=== PATIENT | female | born 2005 | race Caucasian/White ===

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

== ENCOUNTER 2025-04-16 17:36 | Emergency (ER) | payer OTHER, SELFPAY ==
--- OUTSIDE RECORDS SUMMARY | 2025-04-16 18:12 | XMS_ITS | Referral Summary ---
Author Organization [facility] Address [address] [place] [id number] Care Team Providers Care Applications Consultant Name Role Phone Unavailable Primary Care Provider Unavailabl e Allergies No known active allergies Medications No known medications Social History Tobacco Use Types Packs/Day Years Used Date Smoking Tobacco: Never Smokeless Tobacco: Never Tobacco Cessation:Counseling Given: Not Answered Alcohol Use Standard Drinks/Week Comments Never 0 (1 standard drink = 0.6 oz pur e alcohol) Interpersonal Safety Answer Date Record ed Family or friends hurt you Not on file 11/29 Family or friends insult you Not on file Family or friends threaten you Not on file 0 11/29/2023 Family or friends scream or curse at you Not on file 11/29/2023 Housing Stability Answer Date Recorded Living situation today Not on file Living situation problems Not on file 2023 Food Insecurity Answer Date Recorded Food run out past 12 months Not on file 11/11 Food did not last past 12 months Not on file 11/29/2023 Employment Answer Date Recorded Help finding and keeping a job Not on file 0 11/29/2023 Family and Community Support Answer Nitin e Recorded Help with Day to Day Activities Not on file 11/29/2023 Feeling Lonely or Isolated Not on file 11/29 Educational Attainment Answer Date Dominic rded Speak language other than Romanian at home Not on file 11/29/2023 Want help with school or training Not on file 11/29/2023 Depression Answer Date Recorded PHQ-2 Risk Not on file 11/29/2023 Disabilities Answer Date Recorded Difficulty concentrating Not on file 024 Difficulty doing errands alone Not on file 0 11/29/2023 Substance Use Answer Date Recorded Used prescription meds for non-medical reasons N ot on file 11/29/2023 Used illegal drugs past 12 months Not on file 11/29/2023 Comments Unknown Sex and Gender Information Value Date Recorded Sex Assigned at Not on file Legal Sex Female 6:28 PM CDT Gender Identity Not on file Sexual Orientation Not on file Last Filed Vital Signs Vital Sign Reading Time Taken Comments Blood Pressure 113/65 08/24/2023 10:12 PM EDT Pulse 89 08/24/2023 10:12 PM EDT Temperature 36.3 C (97.4 F) 08/25/2023 1:22 AM EDT Respiratory Rate 18 08/24/2023 10:12 PM EDT Oxygen Saturation 99% 08/24/2023 10:12 PM EDT Inhaled Oxygen Concentration - - Weight 66.7 kg (147 lb) 08/24/2023 10:12 PM EDT Height 157.5 cm (5' 2 ) 08/24/2023 10:12 PM EDT Body Mass Index 26.89 08/24/2023 10:12 PM EDT Plan of Treatment Not on [place] [address] [place] [address] [facility]
--- OUTSIDE RECORDS SUMMARY | 2025-04-16 18:12 | XMS_ITS | Data Portability ---
Author Organization Jimmy MAJANO[facility] Address [address], [address] [place] [address] Care Team Providers Care Distillery Worker General Name Role Phone NELIAALISA Primary Care Provider CHAITANYA RONDON Waste Machine Tender Assessment No assessment recorded. Plan of Treatment Reminders Order Date Submit Date Provider Last Modified By Organization Details Last Modified Time Details Appointments None record ed. Lab None record ed. Referral None record ed. Procedures None record ed. Surgeries None record ed. Imaging None record ed. Medication Orders None record ed. Patient TargetsNo targets recorded. Patient InstructionsNo instructions recorded. Reason for Referral None Reported. Problems Name Problem SNOMED Code Status Onset Date Resolution Date Notes Provider Name and Address Organization Details Recorded Time Anemia 334261121 Active 2023 1/6/24 H/H 27.0/8.6 Saw Hematology , getting IV iron LIU BURNS NP [address], [address], [place], [address] , [place] [facility] 10:45:22 Anemia 730328697 Active 2023 1/6/24 H/H 27.0/8.6 Saw Hematology , getting IV iron LIU BURNS NP [address], [address], [place], [address] , [place] [facility] 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 4 10:50:08 Depressiv e disorder 91164748 Active 2023 On medication LIU BURNS NP [address], [address], [place], , [place] MD [facility] 4 10:47:27 Depressiv e disorder 56201738 Active 2023 On medication JESSICA [address], [address], [place], , [place] MD [facility] 4 10:47:27 Generaliz ed anxiety disorder 94365647 Active 2023 LIU BURNS NP [address], [address], [place], , [place] MD [facility] 4 10:47:55 Generaliz ed anxiety disorder 81683296 Active 2023 LIU BURNS NP [address], [address], [place], , [place] MD [facility] 4 10:47:55 Polycysti c ovary syndrome 402950130 Active 2023 LIU BURNS NP [address], [address], [place], , [place] MD [facility] 4 10:48:12 Polycysti c ovary syndrome 868457735 Active 2023 LIU BURNS NP [address], [address], [place], , [place] MD [facility] 4 10:48:13 Bipolar disorder 14259168 Active 2023 LIU BURNS NP [address], [address], [place], [address] , [place] Ankur MAJANO.[facility] 4 10:51:22 Bipolar disorder 90106918 Active 2023 LIU BURNS NP [address], [address], [place], [address] , [place] MD [facility]iana [facility] 4 10:51:23 Problem Notes None recorded. Procedures Surgical History Date Name Laterality Status Provider Name and Address Organization Details Recorded Time extraction of wisdom tooth completed [address], [address], [place], [address], MD [facility] 12/12/2023 10:47:10 Imaging Results None recorded. Procedure Notes None recorded. Medical Equipment None Reported. Allergies Allergen ID Allergen Name Allergen Category Reaction Reaction Severity Criticality Documentation Date Start Date Code Code System Note Provider Name and Address Organization Details Recorded Time 2211 lactose food,medi cation Not available Not available Not available 12/12/2023 6211 RxNorm Lacto se intol eranc e LIU BURNS NP [address], [address], [place], [address], MD [facility] 4 10:38:48 2212 grass pollen environme nt,medica tion rash Not available Not available 12/12/2023 81956 UNK LIU BURNS NP [address], [address], [place], [address], MD [facility] 4 10:38:56 Medications Name Sig Start Date Stop Date Status Note LastModified by Organization Details LastModified Time terconazole 0.4 % vaginal cream INSERT 1 APPLICATO R INTO THE VAGINA EVERY NIGHT FOR 7 DAYS. 12/12 completed Not Available Not Available Not Available levothyroxi ne 175 mcg tablet TAKE 1 TABLET BY MOUTH EVERY DAY 12/12 completed Not Available Not Available Not Available levothyroxi ne 137 mcg tablet TAKE 1 TABLET BY MOUTH EVERY DAY 12/12 completed Not Available Not Available Not Available doxycycline hyclate 100 mg capsule TAKE 1 CAPSULE TWICE DAILY WITH AT LEAST 8OZ OF WATER. DO NOT LIE DOWN FOR 30 MIN AFTER 12/12 completed Not Available Not Available Not Available Vitamin B-6 25 mg tablet TAKE 1 TABLET BY MOUTH EVERY DAY AT NIGHT 12/12 completed Not Available Not Available Not Available Synthroid 200 mcg tablet TAKE 1 TABLET BY MOUTH EVERY DAY active Not Available Not Available No t Available promethazin e 25 mg rectal suppository INSERT 1 SUPPOSITO RY INTO THE RECTUM EVERY 4 (FOUR) HOURS NEEDED FOR NAUSEA OR VOMITING. 12/12 completed Not Available Not Available Not Available ondansetron HCl 4 mg tablet TAKE 1 TABLET BY MOUTH EVERY 6 HOURS NEEDED FOR NAUSEA AND VOMITING. 12/12 completed Not Available Not Available Not Available topiramate 25 mg tablet TAKE 1 TABLET BY MOUTH TWICE A DAY 12/12 completed Not Available Not Available Not Available metronidazo le 500 mg tablet TAKE 1 TABLET BY MOUTH TWICE A DAY FOR 2 WEEKS 12/12 completed Not Available Not Available Not Available levothyroxi ne 100 mcg tablet TAKE 1 TABLET BY MOUTH EVERY DAY 12/12 completed Not Available Not Available Not Available cephalexin 500 mg capsule TAKE 1 CAPSULE BY MOUTH 2 TIMES A DAY FOR 5 DAYS. 12/12 completed Not Available Not Available Not Available ferrous sulfate 325 mg (65 mg iron) tablet TAKE 1 TABLET BY MOUTH 2 TIMES A DAY BEFORE MEALS. active Not Available Not Available No t Available levothyroxi ne 125 mcg tablet TAKE 1 TABLET BY MOUTH EVERY DAY 12/12 completed Not Available Not Available Not Available docusate sodium 100 mg capsule TAKE 1 CAPSULE BY MOUTH TWICE A DAY NEEDED FOR CONSTIPAT ION 12/12 completed Not Available Not Available Not Available omeprazole 20 mg capsule,del ayed release Take 1 capsule every day by oral route. active Not Available Not Available No t Available montelukast 10 mg tablet TAKE 1 TABLET BY MOUTH EVERYDAY AT BEDTIME 12/12 completed Not Available Not Available Not Available ferrous sulfate 325 mg (65 mg iron) tablet,minnie yed release TAKE 1 TABLET BY MOUTH EVERY DAY WITH BREAKFAST 12/12 completed Not Available Not Available Not Available ondansetron 4 mg disintegrat ing tablet PLACE 1 TABLET ON THE TONGUE EVERY 8 HOURS NEEDED FOR NAUSEA AND VOMITING active Not Available Not Available No t Available metoclopram fernando 10 mg tablet TAKE 1 TABLET BY MOUTH 3 (THREE) TIMES A DAY NEEDED (NAUSEA AND VOMITING) . active Not Available Not Available No t Available levothyroxi ne 112 mcg tablet TAKE 2 TABLETS BY MOUTH EVERY DAY 12/12 completed Not Available Not Available Not Available bupropion HCl XL 150 mg 24 hr tablet, extended release TAKE 1 TABLET BY MOUTH EVERY DAY IN THE MORNING 12/12 completed Not Available Not Available Not Available nitrofurant oin monohydrate /macrocryst als 100 mg capsule TAKE ONE TABLET BY MOUTH TWICE A DAY FOR 7 DAYS MUST ADMINISTE R WITH A MEAL/FOOD 12/12 completed Not Available Not Available Not Available duloxetine 30 mg capsule,del ayed release TAKE 1 CAPSULE BY MOUTH EVERY DAY 12/12 completed Not Available Not Available Not Available Synthroid Takes 224mcg daily active Not Available Not Available No t Available June (28) 3 mg-0.02 mg tablet TAKE 1 TABLET BY MOUTH EVERY DAY 12/12 completed Not Available Not Available Not Available Nighttime Sleep-Aid (doxylamine ) 25 mg tablet TAKE 1 TABLET BY MOUTH EVERY DAY AT NIGHT 12/12 completed Not Available Not Available Not Available Vitals Date Recorded Body height Body mass index (BMI) Body mass index (BMI) Percentile per age and sex Body weight Provider Name and Address Organization Details Last Updated DateTime 12/11/2023 157.48 cm 33.1 kg/m2 96.16 % 72144.22 g Ginger Tobar MD [facility] 12/18/2023 13:27:29 Social History None recorded. Functional Status Question Answer Note LastModified by Organizat ion Details LastModified Time Do you use any illicit or recreational drugs? No Information not available 12/12/2023 Do you or have you ever used any other forms of tobacco or nicotine? No Information not available 12/12/2023 What is your level of alcohol consumption? None Information not available 12/12/2023 Mental Status None recorded. Family History Relationship Description Onset Age of this Age Resolved Age Notes LastModified by Organization Details LastModified Time Mother Diabetes mellitus Not available 2023 10:51:48 Unspecified Relation Depressive disorder [email or web address] Not available 2023 13:36:42 Medical History Condition Response Thyroid Disorder (hypo/hyper throidism) Y Anemia / Blood Disorder Y Mental Disorder (Anxiety, depression, Ea ting Disorder, ADD/ADHD) Y Uterine / Ovarian Disorders (PCOS, Endom etriosis/Fibroids) Y Lung Disease/Disorders (Asthma, COPD) Y Neurologic Disorder (stroke, headache, s eizures) Gynecological HistoryNo gynecological history recorded. Obstetrics History GPAL:G 1 P 0 0 0 0 Past Encounters Encounter ID Performer Location Encounter Start Date Encounter Closed Date Diagnosis/Indication Diagnosis SNOMED-CT Code Diagnosis ICD10 Code Diagnosis Note [id number] [facility] [address], [address] [place] [address] 12/13/2023 15:24:44 12/13/2023 15:26:47 [id number] [facility] [address], [address] [place] [address] 12/18/2023 13:30:22 12/18/2023 13:37:02 Screening - NAD 232431803 Z13.9 Z13.30 Z13.32 Health Concerns Section Related Observation LastModified by Organization Detai ls LastModified Time None Recorded Concern Status LastModified by Organization Details LastModified Time None Recorded Advance Directives Directive None Recorded Payers Insurance Date Sequence Insurance Name Policy Number Policy Mahoney Covered Member ID Mahoney Member ID Guarantor Name 12/11/2023 *SELF PAY* Kannan Beltre 03/25/2024 1 [place] [id number] Macey Holoch [id number] Macey Holoch OBGyn Episode Ob Episode Information Episode Created Date Number of Fetuses Patient Bloodtype Patient rh Status Prepregnancy Weight lbs Domestic Partner Domestic Partner Phone Father Name Camera Engineer Status 12/11/19 24 1 OPEN Fetus Data First Name Last Name Admitted to NICU Weight (g) Sex Living Outcome Pediatric Complications Fetus ID Race Codes Race Delivery Type [id number] Problems Problem Notes Problem Name Start Date End Date Resolution Snomed Code Not e Generalized anxiety disorder 12/12/2023 35662925 Hypothyroidism 12/12/2023 95147322 Ryder enital - born without a thyroid, followed by [facility] endocrine, On synthroid Depressive disorder 12/12/2023 83968040 On medication Polycystic ovary syndrome 12/12/2023 388424597 Anemia 12/12/2023 683121912 //24 H/ H 27.0/8.6Saw Hematology, getting IV iron Bipolar disorder 12/12/2023 [id number] Aleksandr Calculation Initial Aleksandr Date Initial Exam Date Initial Exam Provider Initial Ultrasound Date Last Menstrual Period Date Ultra Sound Weeks Gestation 02/29/2024 0 Eighteen To Twenty Week Aleksandr Update Ultra Sound Date Fundal Height At Umbil Quickening Date Ultra Sound Latest Weeks Gestation Final Aleksandr Confirmed By Final Aleksandr Confirmed Date Final Aleksandr Date Ultra Sound Latest Days Gestation 0 0 Pre-sandro Flowsheet Flowsheet Date 12/11/2023 Kearns Score Blood Edema Fundus Height Fundus Units Glucose Ketones Leukocytes Nitrite Labor Signs Protein Cervic Dilation Cervic Effacement Cervic Station Type Weight in lbs Pre/Post Dialysis Refused BP Diastolic BP Location Tested BP Systolic BP Type Fetus Heart Rate Present Fetus Movement Comments Flowsheet Date 12/12/2023 Kearns Score Blood Edema Fundus Height Fundus Units Glucose Ketones Leukocytes Nitrite Labor Signs Protein Cervic Dilation Cervic Effacement Cervic Station Type Weight in lbs Pre/Post Dialysis Refused BP Diastolic BP Location Tested BP Systolic BP Type Fetus Heart Rate Present Fetus Movement Comments Menstrual History Last Menstrual Date Menses Monthly On Bcp Conception Prior Menses Frequency Hcg Plus Date Menarche Onset Age Delivery Information Delivery Date Delivery Type Labor Anesthesia Weeks Gestation Incision Type Labor Labor Length Hrs Delivered By Post Complications Tubal Sterilization Discharge Date Comments Discharge Information Feeding Method Contraceptive Method Maternal HG B and HCT Levels
--- OUTSIDE RECORDS SUMMARY | 2025-04-16 18:12 | XMS_ITS ---
Author Organization Unknown Patient Care team information Name Category Status Period Participants - - Proposed period not known - - - Proposed period not known -
--- OUTSIDE RECORDS SUMMARY | 2025-04-16 18:12 | XMS_ITS | Encounter Summary ---
Author Organization Healthcare Address [address] [place] [address] Care Team Providers Care Spa Coordinator Name Role Phone Oral Carreon MD Primary Care Provider Reason for Visit * Reason Comments Med Refill Encounter Details Date Type Department Care Team ([facility] Contact Info) Description 04/19/2023 Refill Medical Office Building Obstetrics and Gynecology [address], [address] [place] [address] Melanie Ryan, PAINTLESS DENT REPAIR TECHNICIAN [address] [place] [address] PCOS (polycystic ovarian syndrome); Surveillance of contraceptive pill Social History Tobacco Use Types Packs/Day Years Used Date Smoking Tobacco: Never Smokeless Tobacco: Never Alcohol Use Standard Drinks/Week Comments Never 0 (1 standard drink = 0.6 oz pur e alcohol) PHQ-2 Answer Date Recorded PHQ-2 Score 0 04/15/2023 Comments No Sex and Gender Information Value Date Recorded Sex Assigned at Female 01/25/2022 3:57 PM EDT Legal Sex Female 8:42 PM EDT Gender Identity Non-Binary 01/25/2022 3:57 PM EDT Sexual Orientation Straight 10/20/2023 7: 32 PM EST documented as of this encounter Plan of Treatment Not on file documented as of this encounter Visit Diagnoses Diagnosis PCOS (polycystic ovarian syndrome) Polycystic ovaries Surveillance of contraceptive pill Surveillance of previously prescribed contraceptive pill documented in this encounter Additional Health Concerns Assessment Noted Time A fall risk assessment has been complete d for the patient 11/30/2021 2:52 PM EST documented as of this encounter Care Teams Spa Coordinator Relationship Specialty Start Date End Date Oral Carreon MD [address] [place], [place] [id number] PCP - General 03/24/21 documented as of this encounter
--- OUTSIDE RECORDS SUMMARY | 2025-04-16 18:13 | XMS_ITS | Clinical Summary ---
Author Organization Healthcare Address [address] [place] [address] Care Team Providers Care Control Clerk Name Role Phone Oral Carreon MD Primary Care Provider [phone] Allergies No known active allergies Medications SUMAtriptan (Imitrex) 100 MG tablet Take 100 mg by mouth 1 (one) time each day if needed. Usually takes once every two weeks 11/06/20 21 Active montelukast (Singulair) 10 MG tablet Take 10 mg by mouth 1 (one) time each day. 11/05/20 21 Active magnesium oxide (Mag-Ox) 250 MG tablet Take 250 mg by mouth 1 (one) time each day. 04/15/20 20 Active albuterol 108 (90 Base) MCG/ACT inhaler Inhale 2 puffs every 2 (two) hours if needed. 11/06/20 21 Active coenzyme Q-10 200 MG capsule Take 200 mg by mouth 1 (one) time each day. 04/15/20 20 Active Riboflavin (Vitamin B-2) 100 MG tablet Take 200 mg by mouth 1 (one) time each day. Active ondansetron ODT (Zofran-ODT) 4 MG disintegrating tablet 03/27/20 22 Active omeprazole (PriLOSEC) [address] capsule TAKE 1 ORAL CAPSULE ONCE A DAY FOR GASTRIC PAIN 03/27/20 22 Active Multiple Vitamin (Multi-Vitamin Daily) tablet 08/15/20 15 Active ibuprofen 800 MG tablet Take 800 mg by mouth every 6 (six) hours if needed. 12/29/19 22 Active buPROPion XL (Wellbutrin XL) 150 MG 24 hr tablet 10/15/20 22 Active FLUoxetine (PROzac) 20 MG capsule Take by mouth 1 (one) time each day. 09/24/20 22 Active levothyroxine (Synthroid, Levoxyl) 137 MCG tablet Take 137 mcg by mouth 1 (one) time each day. 04/12/20 Active DULoxetine (Cymbalta) [address] capsule 04/18/20 Active drospirenone-ethin yl estradiol (Arminda, Gianvi) 3-0.02 MG tabletIndications: PCOS (polycystic ovarian syndrome),Surveill ance of contraceptive pill Take 1 tablet by mouth 1 (one) time each day. 84 tablet 3 04/19/20 Active Additional Information Patient not taking.Reported on 10/23/2023 ferrous sulfate 325 (65 Fe) MG EC tablet Take 1 tablet (325 mg) by mouth 1 (one) time each day with breakfast. 04/19/20 Active levothyroxine (Synthroid, Levoxyl) 125 MCG tablet Take 1 tablet (125 mcg) by mouth 1 (one) time each day. 04/19/20 Active topiramate (Topamax) 25 MG tablet Take 1 tablet (25 mg) by mouth 2 (two) times a day. 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 Immunizations Immunization Administration Dates Next Due Influenza, injectable, quadrivalent, preservativ e free 09/17/2016,09/06/2015 Family History Medical History Relation Name Comments abscess Brother No Known Problems Father Bipolar disorder Mother Diabetes Mother type 2 Migraines Mother abscess Mother Diabetes Other Relation Name Status Comments Brother Father Mother Other Social History Tobacco Use Types Packs/Day Years Used Date Smoking Tobacco: Never Smokeless Tobacco: Never Tobacco Cessation:Counseling Given: Not Answered Alcohol Use Standard Drinks/Week Comments Never 0 (1 standard drink = 0.6 oz pur e alcohol) PHQ-2 Answer Date Recorded PHQ-2 Score 2 05/22/2023 PHQ-2A Answer Date Recorded PHQ-2 Score 2 05/22/2023 Comments Unknown Sex and Gender Information Value Date Recorded Sex Assigned at Female 01/25/2022 3:57 PM EDT Legal Sex Female 8:42 PM EDT Gender Identity Non-Binary 01/25/2022 3:57 PM EDT Sexual Orientation Straight 10/20/2023 7: 32 PM EST Last Filed Vital Signs Vital Sign Reading Time Taken Comments Blood Pressure 110/60 04/19/2023 10:19 AM EDT Pulse 105 04/19/2023 10:19 AM EDT Temperature 36.9 C (98.4 F) 01/25/2023 12:01 PM EDT Respiratory Rate 18 04/19/2023 10:19 AM EDT Oxygen Saturation 96% 04/19/2023 10:19 AM EDT Inhaled Oxygen Concentration - - Weight 68 kg (150 lb) 10/23/2023 3:06 PM EST Height 157.5 cm (5' 2 ) 04/19/2023 10:19 AM EDT Body Mass Index 27.44 04/19/2023 10:19 AM EDT Plan of Treatment Health Maintenance Due Date Last Done Comments [facility]-Depression Screening 2005 [facility]-HIV Screening 2005 [facility]-/Child/Adol SDOH Screenings 2005 [facility]-Obesity Intervention 2011 [facility]- SDOH Screenings 2023 [facility]-Adult SDOH Screenings 2023 [facility]-Pneumococcal Vaccine: Pediatrics (0 to 5 Years) and At-Risk Patients (6 to 49 Years) (1 of 2 - PCV) 01/30/2024 05/06/2006, 2005, 2005, Additional history exists [facility]-Chlamydia and Gonorrhea Screening 04/19/2024 04/19/2023, 04/19/2023, 01/25/2023, Additional history exists [id number] Vaccine ( season) 2024 10/21/2021, 02/27/2021, 02/06/2021 [facility]-Influenza Vaccine (Season Ended) 2025 09/12/2021, 07/25/2020, 10/30/2019, Additional history exists [facility]-DTaP,Tdap,and Td Vaccines (7 - Td or Tdap) 02/16/2026 02/17/2016, 02/25/2009, 05/06/2006, Additional history exists [facility]-Zoster Vaccines (1 of 2) 2055 02/25/2009, 02/11/2006 [facility]-Hepatitis B Vaccines Completed 005, 2005, 2005, Additional history exists [facility]-HIB Vaccines Completed 02/11/2006, , 2005 [facility]-Hepatitis A Vaccines Completed 12/31/2006, 04/12 [facility]-IPV Vaccines Completed 02/25/2009, , 2005, Additional history exists [facility]-Varicella Vaccines Completed 02/25/2009, 2005 HPV Vaccines Completed 06/25/2017, 12/25/2016 [facility]-Hepatitis C Screening Completed 04/18/2023 [facility]-Rotavirus Vaccines Aged Out No lo nger eligible based on patient's age to complete this topic Procedures Procedure Name Priority Date/Time Associated Diagnosis Comments CHLAMYDIA TRACHOMATIS DNA BY PCR Routine 04/19/2023 11:24 AM EDT Routine screening for STI (sexually transmitted infection) from Last 3 Months or Most Recently Relevant to Health Maintenance Results * Chlamydia trachomatis DNA by PCR (04/19/2023 11:24 AM EDT) Chlamydia trachomatis DNA PCR Result Not Detected Not Detected 04/21/2023 1:53 PM EDT [facility] Urine Urine specimen / Unknown Non-blood Collection / Unknown 04/19/2023 11:24 AM EDT 04/19/2023 1:45 PM EDT Narrative [facility] - 04/21/2023 1:53 PM EDT This test is performed by the PandaDoc instrument for Real Time PCR C. trachomatis and N. gonorrhea. This test is FDA approved for use with endocervical, vaginal, and urine specimens. This test is used for clinical purposes. It should not be regarded as invesigational or for research. The [facility] is certified under the Clinical Laboratory Improvement Amendments of 1988 (CLIA-88) as qualified to perform high complexity clinical laboratory testing. us Melanie Ryan ELEMENTARY EDUCATOR LAB MICROBIOLOGY - GENERAL OR DERABLES Final Result [facility] [address] [place] [address] from Last 3 Months or Most Recently Relevant to Health Maintenance Care Teams Control Clerk Relationship Specialty Start Date End Date Oral Carreon MD [address] [place] [address] PCP - General 03/24/21
--- OUTSIDE RECORDS SUMMARY | 2025-04-16 18:13 | XMS_ITS | Encounter Summary ---
Author Organization Healthcare Address [address] [place] [address] Care Team Providers Care Gun Number Name Role Phone Oral Carreon MD Primary Care Provider [phone] Reason for Visit * Reason Comments Med Refill Encounter Details Date Type Department Care Team ([facility] Contact Info) Description 03/22/2023 Refill Medical Office Building Obstetrics and Gynecology [address], [address] [place] [address] Melanie Ryan, TECHNOLOGY INTEGRATION SPECIALIST [address] [place] [address] PCOS (polycystic ovarian syndrome); Surveillance of contraceptive pill Social History Tobacco Use Types Packs/Day Years Used Date Smoking Tobacco: Never Smokeless Tobacco: Never Alcohol Use Standard Drinks/Week Comments Never 0 (1 standard drink = 0.6 oz pur e alcohol) PHQ-2 Answer Date Recorded PHQ-2 Score 1 02/14/2023 Comments No Sex and Gender Information Value [...] documented as of this encounter Care Teams Gun Number Relationship Specialty Start Date End Date Oral Carreon MD [address] [place] [address] PCP - General 03/24/21 documented as of this encounter
--- OUTSIDE RECORDS SUMMARY | 2025-04-16 18:13 | XMS_ITS | Clinical Summary ---
Author Organization [facility] Address [address] [place] [address] Care Team Providers Care Disc Pad Knockout Worker Name Role Phone Unavailable Primary Care Provider [...] Date Dominic rded Speak language other than Stateless at home Not on file 11/29/2023 Want [...] 08/24/2023 10:12 PM EDT Plan of Treatment Health Maintenance Due Date Last Done Comments Depression Screening (12+) 2017 Tobacco Cessation Counseling and Screening (12+) 2017 HIV Screening 01/30/2020 Meningococcal B Vaccine (1 of 2 - Standard) 2021 Hepatitis C Screening 2023 COVID-19 VACCINE ( season) 2024 10/21/2021, 02/27/2021, 02/06/2021 Influenza Vaccine (Season Ended) 2025 09/12/2021, 07/25/2020, 10/30/2019, Additional history exists DTAP/TDAP/TD VACCINES (6 - Td or Tdap) 02/16/2026 02/17/2016, 02/25/2009, 2005, Additional history exists Pneumococcal Vaccine: 0-49 Years Aged Out No longer eligible based on patient's age to complete this topic Insurance [facility]
--- OUTSIDE RECORDS SUMMARY | 2025-04-16 18:13 | XMS_ITS | Encounter Summary ---
Author Organization [facility] Address [address] [place] [address] Care Team Providers Care Pharmacy District Manager Name Role Phone Unavailable Primary Care Provider Unavailabl e Encounter Details Date Type Department Care Team (Late st Contact Info) Description 08/26/2023 Telephone [facility] Emergency Department [address] [place] [address] Alfredo Vicente PA [address] [place] [address] Social History Tobacco Use Types Packs/Day Years Used Date Smoking Tobacco: Never Smokeless Tobacco: Never Alcohol Use Standard Drinks/Week Comments Never 0 (1 standard drink = 0.6 oz pur e alcohol) Comments Yes Sex and Gender Information Value Date Recorded Sex Assigned at Not on file Legal Sex Female 6:28 PM CDT Gender Identity Not on file Sexual Orientation Not on file COVID-19 Exposure Response Date Recorded In the last 10 days, have yo u been in contact with someone who was confirmed or suspected to have Coronavirus/COVID-19? No / Unsure 08/24/2023 10:14 PM EDT documented as of this encounter Plan of Treatment Not on file documented as of this encounter Visit Diagnoses Not on filedocumented in this encounter
[2025-04-16 18:18] VITALS: BP 90/58; PULSE 77; RESP 14; TEMP 36.8; O2SAT 98; BMI 28.3
--- NOTE | 2025-04-16 18:35 | ED_ITS ---
<Statement entered by Prachi Philip MD - 04/16/25 23:00> I was consulted by the ABISAI, and we discussed the complexity of the problems being addressed. I approved the treatment and management plan for this patient's care in the emergency department, thus performing a substantive portion of the medical decision making. Prachi Philip MD, TERESA, FACEP Discharge Plan Disposition Patient Disposition: Home, Self-Care Prescriptions Prescriptions: New meclizine 25 mg tablet 25 mg PO TID Qty: 10 0RF prednisone 20 mg tablet 20 mg PO BID 5 Days Qty: 10 0RF No Action levothyroxine 175 mcg tablet 175 mcg PO DAILY phentermine 15 mg capsule 15 mg PO DAILY Patient Comments: TAKE 1 CAPSULE BY MOUTH EVERY DAY IN THE MORNING etonogestrel-ethinyl estradiol [NuvaRing] 0.12-0.015 mg/24 hr ring 1 vag ring vaginal Q4W Qty: 3 2RF Rx Instructions: leave in place for 3 weeks of a 4-week cycle Referrals Follow up/Referrals: Oral Carreon [Primary Care Provider, Medical] - See instructions Clinical Impressions Clinical Impression: Vertigo Instructions Patient Instructions: DI for Vertigo, DI for Headache Print Language Print Language: German Discharge ED Provider: Prachi Philip General Adult HPI General Chief complaint: Headache Stated complaint: vertigo Time Seen by Provider: 04/16/25 18:10 Mode of Arrival: Ambulatory Source of Information: Patient Description of Symptoms (Recalled from ER Triage Doc. by RN): pt c/o a COLON in the crown region and minimal dizziness x2wks. pt states the pain is 5/10 and feels l kristi pressure. pt has a hx of migraines but states this is different. pt states a week prior to the COLON's she hit the same area of her head on a counter very hard. History of Present Illness HPI narrative: 20-year-old female presents to the ED today with complaint of pressure in her head along with dizziness for 2 to 3 weeks. She says she does have migraines but this is not a migraine. She says that she has no nausea or vomiting. She did recently have a baby. She also could not go to work today because she had some pressure in her head. She has had no loss of consciousness, no neck pain, no recent fevers or chills. Patient said she was going to go to the doctor but got a new job and could not get off. She says her blood pressure is typically about what it is now. She has no other concerns. Related Data Home Medications ?Medication ?Instructions ?Recorded ?Confirmed levothyroxine 175 mcg tablet 175 mcg PO DAILY 10/21/24 10/21/24 phentermine 15 mg capsule 15 mg PO DAILY 10/21/2410/11 Previous Rx's ?Medication ?Instructions ?Recorded etonogestrel 0.12 mg-ethinyl 1 vag ring vaginal Q4W #3 ea 10/21/24 estradiol 0.015 mg/24 hr vaginal ring (NuvaRing) meclizine 25 mg tablet 25 mg PO TID #10 tabs prednisone 20 mg tablet 20 mg PO BID 5 days #10 tabs 04/16/25 Allergies Allergy/AdvReac Type Severity Reaction Status Date / Time No Known Allergies Allergy Verified 10/21/24 13:34 [facility] Disclaimer: The information contained in this section may have been updated after the patient was seen, as this information can be updated by other users. Medical History (Updated 04/16/25 @ 18:52 by Marjan Macdonald (ED), MANUFACTURING TEACHER) Contraception management Asthma Acute on chronic blood loss anemia Status post normal vaginal delivery Congenital hypothyroidism Hypothyroidism Surgical History No significant past surgical history Family History Other Anemia Asthma Diabetes Substance abuse Social History Smoking Status: Never smoker alcohol intake: never substance use type: denies use current occupational status: unemployed Travel in the last 8 weeks?: None Have you lived/traveled outside [place] in past 30 days?: No Contact w/someone who lives/traveled outside US past 30 days?: No Exposure to someone with infectious disease in past 14 days?: No Do you have a fever (greater than 100.4 F or 38 C)?: No Have you tested positive for COVID-19?: No Exposed to someone with COVID-19 in past 14 days?: No Do you have a sore throat?: No Do you have a cough?: No Do you have any weakness?: No Do you have any diarrhea?: No Are you experiencing any unusual bleeding?: No Do you have any muscle aches/pain?: No Do you have any abdominal pain?: No Are you experiencing loss of taste or smell?: No Other Medical History Have you received the Flu Vaccine for this season: No Have you received the Pneumonia Vaccine: No ROS Obtained: Yes Systems reviewed as appropriate & no additional complaints except as documented Constitutional Constitutional: Reports as per HPI Physical Exam General General appearance: alert and in no apparent distress Head Head exam: atraumatic and normocephalic Eye Eye exam: Present normal appearance, PERRL and EOMI ENT ENT exam: Present normal oropharynx, mucous membranes moist and TM's normal bilaterally (Bilateral TMs with cloudy fluid present) Neck Neck exam: Present normal inspection, full ROM and trachea midline Respiratory Respiratory exam: Present normal lung sounds bilaterally Cardiovascular Cardiovascular exam: Present regular rate, normal rhythm, normal heart sounds, +S1 and +S2 Abdominal Exam Abdominal exam: Present soft and normal bowel sounds Extremities Exam Extremities exam: Present normal inspection, full ROM and normal capillary refill Neurological Exam Neurological exam: Present alert, oriented X3 and normal gait Psychiatric Psychiatric exam: Present flat affect Skin Skin exam: Present warm, dry and intact Medical Decision Making Medical Records Screening: Per USPSTF and CDC recommendations, given the prevalence of disease in our region, it is our hospital?s policy to screen for HIV and viral Hepatitis for all patients aged 18 and over and those with ongoing risk factors. Fer Inquiry Pt receiving controlled substance: No Fer was queried for this patient: No Vital Signs: 04/16/25 18:18 04/16/25 18:39 04/16/25 19:19 Temperature 98.2 F 98.9 F 98.3 F Temperature Source Oral Oral Oral Pulse Rate 80 90 Pulse Rate [Left] 77 Respiratory Rate 14 16 16 Blood Pressure 96/56 L 94/55 L Blood Pressure [Right Arm] 90/58 L Blood Pressure Mean [Right Arm] 68 Blood Pressure Source Automatic Cuff Blood Pressure Source [Right Arm] Automatic Cuff Blood Pressure Position Sitting Blood Pressure Position [Right Arm] Sitting 02 Sat by Pulse Oximetry 98 97 Oxygen Delivery Method Room Air Room Air Room Air Orders (Tests/Meds): ORDERS Category Date Time Status HIV Combo Stat Lab 04/16/25 18:28 Received Hepatitis C Ab Qual. W/ RFX Stat Lab 04/16/25 18:28 Received Medical Decision Narrative: patient is a 20-year-old female presenting to the emergency department for evaluation of pressure in her head, dizziness. No fevers, no chills, no cough or recent illness.. Patient is hemodynamically stable and nontoxic-appearing upon arrival, afebrile. Differential diagnosis includes vertigo, allergies, CVA, otitis media, among other. Workup standard CT scan, lab work however after physical exam found fluid on bilateral ears and absence of any other symptoms including a negative stroke scale, no chest pain or shortness of breath and absence of other symptoms. Imaging was considered but felt like I did not needed at this time but did explain to patient that if symptoms persist that she is to go to Dr. Carreon and have further testing completed. Patient understands. Patient safe for discharge home Critical Care Critical Care Time Critical Care Time: No
[2025-04-16 18:39] VITALS: BP 96/56; PULSE 80; RESP 16; TEMP 37.2; O2SAT 97
[2025-04-16 19:19] VITALS: BP 94/55; PULSE 90; RESP 16; TEMP 36.8; O2SAT 99
[2025-04-16 19:44] LABS: HIV Combo NEGATIVE (Negative)
[2025-04-16 19:52] LABS: Hepatitis C Ab Qual. W/ RFX NEGATIVE (Negative)
== END 2025-04-16 19:21 | disposition home or self-care (01) ==
PROVIDERS: Nurse Practitioner; Emergency Provider Student in an Organized Health Care Education/Training Program; PCP Internal Medicine
DX: R42 Dizziness and giddiness (principal); Z11.59 Encounter for screening for other viral diseases; Z11.4 Encounter for screening for human immunodeficiency virus [HIV]
CPT/HCPCS: 80074; 87389; 99283